=== PATIENT | female | born 1960 | race African-American/Black ===

== ENCOUNTER 2018-04-19 16:01 | Emergency (ER) | payer OTHER ==
[2018-04-19 16:36] VITALS: BMI 34.7
[2018-04-19] MEDS ORDERED: SODIUM CHLORIDE 1,000 ML IV STA (16:48)
--- NOTE | 2018-04-19 16:48 | PDOC ---
History of Present Illness - General Chief Complaint: Vomiting/Diarrhea Stated Complaint: WEAKNESS Time Seen by Provider: 04/19/18 16:33 History Source: Patient Exam Limitations: No Limitations - History of Present Illness Initial Comments: 57 yo F w a pmh of HTN presents to the ER [facility] with the chief complaint of weakness, lightheadedness, dizziness, and near syncope. She reports that she got a viral illness from her on Monday. She has experienced subjective fevers, chills, nausea, vomiting - NBNB, and diarrhea which was watery and not bloody. She also had diffuse abdominal cramping associated with the diarrhea. She has had no problem moving her bowels. Anything she has tried to eat she threw up and could not keep anything down for the past 3 days. She reports significant decreased PO intake and dehydration. She denies headache, blurry vision, neck pain, chest pain, SOB, difficulty breathing, dysuria, frequency, or urgency. PCP: Corinna Nicholas PSH: Thyroid nodule removal Allergies: Penicillins, Cherries, Plums Social Hx: Smokes 1 cigarette ever month, drinks wine recreationally, denies other substance usage. Past History - Past Medical History Allergies/Adverse Reactions: Allergies Allergy/AdvReac Type Severity Reaction Status Date / Time Penicillins Allergy Verified 04/19/18 16:36 Home Medications: Ambulatory Orders Amlodipine Besylate [Norvasc -] 10 mg PO DAILY 04/19/18 Lansoprazole [Prevacid -] 30 mg PO DAILY 04/19/18 Nitrofurantoin Monohyd/M-Cryst [Macrobid -] 100 mg PO BID #14 capsule 04/19/18 Kidney Stones: Yes - Immunization History Immunization Up to Date: Yes - Suicide/Smoking/Psychosocial Hx Smoking History: Current some day smoker Have you smoked in the past 12 months: No Information on smoking cessation initiated: No Hx Alcohol Use: No Drug/Substance Use Hx: No Substance Use Type: None Review of Systems - Review of Systems Able to Perform ROS?: Yes Comments:: CONSTITUTIONAL: Present: Fever, chills Absent: no fatigue EYES: Absent: visual changes ENT: Absent: ear pain, no sore throat CARDIOVASCULAR: Absent: chest pain, no palpitations RESPIRATORY: Absent: cough, no SOB GI: Present: Abdominal pain, nausea, vomiting, diarrhea Absent: no constipation GENITOURINARY: Absent: dysuria, no frequency, no hematuria MUSKULOSKELETAL: Absent: back pain, no arthralgia, no myalgia SKIN: Absent: rash NEURO: Absent: headache *Physical Exam - Vital Signs Last Vital Signs Temp Pulse Resp BP Pulse Ox 98.1 F 94 H 16 128/91 99 04/19/18 16:30 04/19/18 16:30 04/19/18 16:30 04/19/18 16:30 04/19/18 16:30 - Physical Exam Comments: GENERAL: Well-appearing, well-nourished. No apparent distress. HEENT: Normocephalic, atraumatic. PERRL, EOM intact. CARDIOVASCULAR: Normal S1, S2. Regular rate and rhythm. PULMONARY: Clear to auscultation bilaterally. ABDOMEN: Soft, non-distended, non-tender. EXTREMITIES: Normal ROM in all four extremities. No gross deformities. SKIN: Warm, dry. No rash NEUROLOGICAL: No focal neurological deficits. Moderate Sedation - Procedure Monitoring Vital Signs: Procedure Monitoring Vital Signs Temperature 98.1 F 04/19/18 16:30 Pulse Rate 94 H 04/19/18 16:30 Respiratory Rate 16 04/19/18 16:30 Blood Pressure 128/91 04/19/18 16:30 O2 Sat by Pulse Oximetry (%) 99 04/19/18 16:30 ED Treatment Course - LABORATORY CBC & Chemistry Diagram: 04/19/18 17:00 04/19/18 17:00 Medical Decision Making - Medical Decision Making 57 yo F w a pmh of HTN presents to the ER [facility] with the chief complaint of weakness, lightheadedness, dizziness, and near syncope. She reports that she got a viral illness from her on Monday. She has experienced subjective fevers, chills, nausea, vomiting - NBNB, and diarrhea which was watery and not bloody. She also had diffuse abdominal cramping associated with the diarrhea. She has had no problem moving her bowels. Anything she has tried to eat she threw up and could not keep anything down for the past 3 days. She reports significant decreased PO intake and dehydration. DDx IBNLT: Gastroenteritis, Viral illness, Pancreatitis, SBO, Other infection, dehydration, syncope/ near-syncope. Plan: Labs, Urine, EKG, Orthostatics, IV hydration, re-assess. Orthostatic BP after 1.5L: Lying down: 107/73 Standing up: 118/93 Potassium is 3.4 - repleting with 40 of oral potassium Patient has a UTI - treating with macrobid LFTs elevtaed - getting patient a RUQ us - US unremarkable. DCing patient w antibiotics for UTi and GI fu for elevated LFTs *DC/Admit/Observation/Transfer Diagnosis at time of Disposition: Urinary tract infection, Elevated liver enzymes, Nausea & vomiting, Diarrhea - Discharge Dispostion Disposition: HOME Condition at time of disposition: Stable Decision to Admit order: No - Prescriptions Prescriptions: Nitrofurantoin Monohyd/M-Cryst [Macrobid -] 100 mg PO BID #14 capsule - Referrals Referrals: Corinna Nicholas MD [Primary Care Provider] - Meghan Jackman MD [Staff Physician] - - Patient Instructions Printed Discharge Instructions: Urinary Tract Infection, Liver Function Tests Additional Instructions: You came into the ER with nausea, vomiting, abdominal pain, diarrhea, and a fever. We looked at your blood and urine and found that you have a urinary tract infection. We started giving you antibiotics here in the ER but you have to continue taking antibiotics for the next 7 days. We sent the medication to your pharmacy - Please make sure to go and pick it up. Your bloodwork showed that you have elevated liver enzymes. This is not an emergency - but it is very important that you follow up with a manager global communications regarding these results. We have attached the number of a manager global communications for you to call - Dr. Jackman. Please come back to the ER if you get a fever, start vomiting, or have any other new or worsening concerns. Thank you for coming to the [facility] ER. We hope you feel better soon! Print Language: ETHIOPIAN - Post Discharge Activity
[2018-04-19] MEDS ORDERED: ONDANSETRON 4 MG/2 ML VIAL IVPUSH ONE (16:49)
[2018-04-19] MEDS ORDERED: ONDANSETRON 4 MG/2 ML VIAL ONE (16:54)
--- NOTE | 2018-04-19 17:14 | PDOC ---
Attending Attestation - HPI HPI: 04/19/18 17:50 The patient is a 57 year old female with a PMH of dizziness, lightheadedness, and near syncopal episode today. Patient states that for the past 4 days she has had nausea, vomiting, NB diarrhea. Patient describes the diarrhea as multiple episodes of loose stool throughout the day. Patient has been unable to tolerate PO intake for the past 4 days. Patient has been able drink tea and a half a tuna sandwich these past two days. Patient notes she has not been walking around these past four days and felt lightheaded today when she was walking towards the kitchen. Patient states she managed to sit down and denies losing consciousness. Patient also admits diaphoresis. Patient denies any headache, chest pain, or palpitations prior to feeling lightheaded. Patient denies similar symptoms in the past. The patient denies chest pain, shortness of breath, and headache. Denies fever, chills, and constipation. Denies dysuria, frequency, urgency and hematuria. Allergies: NKA Past surgical history: None reported. Social history: No reported alcohol, drug or cigarette use. PCP: Dr. Aj - Physicial Exam PE: 04/19/18 17:53 ADULT PHYSICAL EXAM Constitutional: Awake, alert, oriented. No acute distress. ENT: Mucous membranes are moist and intact. Posterior pharynx without exudates or erythema. Uvula midline. Cardiovascular: Regular rate. Regular rhythm. S1, S2 regular. Distal pulses are 2+ and symmetric. Pulmonary/Chest: No evidence of respiratory distress. Clear to auscultation bilaterally No wheezing, rales or rhonchi. Abdominal: Soft and non-distended. There is no tenderness. No rebound, guarding or rigidity. No organomegaly. No palpable masses. Good bowel sounds. Musculoskeletal: No edema. No cyanosis. No clubbing. Full range of motion in all extremities. No calf tenderness. Radial/pedal pulses are intact and 2+ bilaterally Skin: Skin is warm and dry. No petechiae. No purpura. Neurological: Alert and oriented to person, place, and time. Cranial nerves II -XII are grossly intact. Psychiatric: Good eye contact. Normal interaction, affect and behavior. <Minna Gonzales - Last Filed: 04/19/18 17:59> - Resident Resident Name: John Paul Bernard - ED Attending Attestation I have performed the following: I have examined & evaluated the patient, The case was reviewed & discussed with the resident, I agree w/resident's findings & plan, Exceptions are as noted - Medical Decision Making 04/19/18 17:14 I, Dr. Pura Booker, DO, attest that this document has been prepared under my direction and personally reviewed by me in its entirety. I further attest, that it accurately reflects all work, treatment, procedures and medical decision -making performed by me. 04/19/18 17:37 a/p: 57yo female with n/v/d that resolved yesterday but no po intake until yesterday - was not tolerating PO Monday and monday -felt lightheaded today -no osborn, no cp, no palpitations -suspect volume depletion -will check orthostatics -will ivf hydrate -pt is nontoxic in appearance -will monitor and reassess 04/19/18 18:28 pt with uti on labs will replace K elevated lft, will send for ultrasound pt not orthostatic on exam pt feeling better after ivf hydration 04/19/18 21:17 ultrasound no acute findings of the RUQ mildly elevated LFT will need outpt follow up uti given abx feeling better outpt follow up with GI feeling better stable for dc to home <Pura Booker - Last Filed: 04/19/18 21:18>
[2018-04-19 17:43] LABS: BASO % 0.6 % (0-2.0); EOS % 0.9 % (0-4.5); HEMATOCRIT 38.6 % (32.4-45.2); HEMOGLOBIN 13.6 GM/dL (10.7-15.3); LYMPH % 10.4 % (8-40); MCH 31.5 pg (25.7-33.7); MCHC 35.2 g/dl (32.0-36.0); MEAN CELL VOLUME 89.5 fl (80-96); MEAN PLT VOLUME 7.8 fl (7.5-11.1); MONO % 8.4 % (3.8-10.2); NEUT % 79.7 % (42.8-82.8); PLATELET COUNT 113 K/MM3 (134-434); RBC 4.31 M/mm3 (3.60-5.2); RDW 14.9 % (11.6-15.6); WHITE BLOOD COUNT 5.2 K/mm3 (4.0-10.0)
[2018-04-19 17:45] LABS: URINE APPEARANCE SLCLOUDY; URINE BILIRUBIN NEGATIVE (<2.0 mg/dL); URINE COLOR YELLOW; URINE GLUCOSE (UA) 1+ (NEGATIVE); URINE KETONE 1+ (NEGATIVE); URINE LEUK ESTERASE 3+ (NEGATIVE); URINE NITRITE NEGATIVE (NEGATIVE); URINE PROTEIN 2+ (NEGATIVE); URINE UROBILINOGEN NEGATIVE mg/dL (0.2-1.0)
[2018-04-19 17:50] LABS: EPI CELLS RARE /HPF (FEW); URINE HYALINE CAST 16 /lpf; URINE MUCUS RARE
[2018-04-19 17:58] LABS: ALBUMIN 3.9 g/dl (3.4-5.0); ALK PHOS 90 U/L (45-117); ANION GAP 9 MMOL/L (8-16); BILIRUBIN,TOTAL 1.1 mg/dL (0.2-1); BLOOD UREA NITROGEN 17 mg/dL (7-18); CALCIUM 9.1 mg/dL (8.5-10.1); CHLORIDE 104 mmol/L (98-107); CO2 26 mmol/L (21-32); CREATININE 0.8 mg/dL (0.55-1.3); GLUCOSE,RANDOM 111 mg/dL (74-106); LIPASE 284 U/L (73-393); POTASSIUM 3.4 mmol/L (3.5-5.1); SGOT/AST 406 U/L (15-37); SGPT/ALT 367 U/L (13-61); SODIUM 138 mmol/L (136-145); TOT PROT 7.3 g/dl (6.4-8.2)
[2018-04-19] MEDS ORDERED: POTASSIUM CHLORIDE ORAL LIQUID 20 MEQ/15 ML PO ONE (18:29)
[2018-04-19] MEDS ORDERED: NITROFURANTOIN MACROCRYSTAL 50 MG CAPSULE (FP) PO SCH (18:30)
[2018-04-19] MEDS ORDERED: SODIUM CHLORIDE 0.9% 500 ML INFUS.BAG IV ONE (18:35)
[2018-04-19] MEDS ORDERED: NITROFURANTOIN MACROCRYSTAL 50 MG CAPSULE (FP) ONE (18:58)
[2018-04-19] MEDS ORDERED: POTASSIUM CHLORIDE ORAL LIQUID 20 MEQ/15 ML ONE (18:59)
[2018-04-19 21:53] VITALS: BP 128/78; PULSE 88; TEMP 98.5
== END 2018-04-19 21:53 | disposition home or self-care (01) ==
LOC: JER 16:01
PROC: 3E033GC Introduction of Other Therapeutic Substance into Peripheral Vein, Percutaneous Approach (ICD-10-PCS; principal; 2018-04-19)
PROC: 3E0337Z Introduction of Electrolytic and Water Balance Substance into Peripheral Vein, Percutaneous Approach (ICD-10-PCS; 2018-04-19)
DX: R11.2 Nausea with vomiting, unspecified (principal); R19.7 Diarrhea, unspecified; N39.0 Urinary tract infection, site not specified; R94.5 Abnormal results of liver function studies; I10 Essential (primary) hypertension
CPT/HCPCS: 36415; 76705-TC; 80053; 81003; 81015; 83690; 85025; 87086; 99284-25; J7030